=== PATIENT | male | born 1960 | race Caucasian/White ===

== ENCOUNTER → 2024-04-05 | Outpatient (CLI) | payer OTHER ==
--- NOTE | 2024-04-05 09:03 | MR ---
EXAMINATION TYPE: MR Prostate wo/w con DATE OF EXAM: 04/05/2024 8:27 AM COMPARISON: None. CLINICAL INDICATION: Male, 64 years old with history of I70.209, R97.20; Elevated PSA TECHNIQUE: Multi-planar, multi-sequence imaging of the pelvis is performed prior to and following the uncomplicated administration of bolus intravenous gadolinium. IV Contrast: 12 mL Gadobutrol Interpretive Criteria: PI-RADS v2.1 SERUM PSA: 01/2023=5.58, 02/2024=4.82 SURGICAL PATHOLOGY: No data available. FINDINGS: Prostatic dimensions: 5.8 x 3.8 x 5.2 cm cm. Ellipsoid Volume:60.01 (PSA density=0.08 ng/mL/mL) CENTRAL GLAND (Central and Transition Zones/CZ+TZ): Multiple bilateral, heterogenous appearing hypertrophic stromal nodules, without suspicious lesion. M edian lobe hypertrophy with protrusion into the base of the bladder. (PI-RADS 2) PERIPHERAL ZONE (PZ): Bilateral linear, indistinct wedgelike areas of low ADC, and low T2 signal, No evidence of masslike a bnormality, or localized perfusional hypervascularity, to further suggest a focus of clinically signi ficant prostate cancer. (PI-RADS 2) SEMINAL VESICLES (SV): Symmetric and unremarkable. PERIPROSTATIC TISSUES: Unremarkable. LYMPH NODES: No enlarged pelvic lymph node. REMAINING PELVIS: Bladder wall is within normal limits given distention. No abnormal free or organized intrapelvic fluid collection. No pathologic bowel dilation or mural thickening. Bilateral fat containing inguinal hernias. OSSEOUS STRUCTURES: No suspicious osseous abnormality. Hip arthroplasty susceptibility artifact limits evaluation bilater ally. IMPRESSION: 1. No specific features for high-risk prostate cancer. Maximum PI-RADS score: 2. 2. Moderate BPH, estimated gland volume 60.01 mL. 3. No suspicious osseous lesion. No lymphadenopathy. No evidence of prostate adenocarcinoma involving the periprostatic tissues. [facility], , 04/05/2024 9:01 AM
--- NOTE | 2024-04-06 10:24 | CA ---
Transthoracic Echo Report Name: Kar Russell Age: 64 Gender: M : 1960 Exam Date: 04/05/2024 08:28 Exam Location: [place] [facility] Ht (in): 72 Wt (lb): 270 Ordering Physician: Carlos Wilde Attending/Referring Phys: Eyad Contreras [facility] [place] [employer] Lilly Carias RDCS Procedure CPT: Indications: I70.209, R97.20 Cardiac Hx: Technical Quality: Good Contrast 1: Total Dose (mL): Contrast 2: Total Dose (mL): MEASUREMENTS (Male / Female) Normal Values 2D ECHO LV Diastolic Diameter PLAX 4.8 cm 4.2 - 5.9 / 3.9 - 5.3 cm LV Systolic Diameter PLAX 3.1 cm IVS Diastolic Thickness 0.9 cm 0.6 - 1.0 / 0.6 - 0.9 cm LVPW Diastolic Thickness 0.9 cm 0.6 - 1.0 / 0.6 - 0.9 cm LV Relative Wall Thickness 0.4 RV Internal Dim ED PLAX 3.3 cm Aortic Root Diameter 3.1 cm LA Systolic Diameter LX 3.7 cm 3.0 - 4.0 / 2.7 - 3.8 cm LV Diastolic Volume MOD BP 99.6 cm??? 67 - 155 / 56 - 104 cm??? LV Systolic Volume MOD BP 34.9 cm??? 22 - 58 / 19 - 49 cm??? LV Ejection Fraction MOD BP 64.9 % >= 55 % LV Cardiac Index MOD BP 1374.9 cm???/min???m??? LV Diastolic Volume MOD 4C 91.2 cm??? LV Systolic Volume MOD 4C 32.6 cm??? LV Ejection Fraction MOD 4C 64.3 % LV Cardiac Index MOD 4C 1246.6 cm???/min???m??? LV Diastolic Length 4C 8.9 cm LV Systolic Length 4C 7.4 cm LV Diastolic Volume MOD 2C 106.1 cm??? LV Systolic Volume MOD 2C 36.7 cm??? LV Ejection Fraction MOD 2C 65.4 % LV Cardiac Index MOD 2C 1476.6 cm???/min???m??? LV Diastolic Length 2C 8.7 cm LV Systolic Length 2C 7.1 cm DOPPLER Mitral E Point Velocity 52.9 cm/s Mitral A Point Velocity 66.0 cm/s Mitral E to A Ratio 0.8 MV Deceleration Time 326.4 ms MV E' Velocity 6.3 cm/s Mitral E to MV E' Ratio 8.4 TR Peak Velocity 210.4 cm/s TR Peak Gradient 17.7 mmHg FINDINGS Left Ventricle Left ventricular ejection fraction is estimated at 55-60 %. Normal left ventricular systolic function with no obvious regional wall motion abnormalities. Right Ventricle Normal right ventricular size and function. Right ventricular systolic pressure within normal limits. Right Atrium Normal right atrial size. Left Atrium Normal left atrial size. Mitral Valve Structurally normal mitral valve. No mitral stenosis. Trace mitral regurgitation. Aortic Valve Trileaflet aortic valve. No aortic stenosis. Trace aortic regurgitation. Tricuspid Valve Structurally normal tricuspid valve. Trace tricuspid regurgitation. Pulmonic Valve Structurally normal pulmonic valve. No pulmonic stenosis. Moderate pulmonic regurgitation. Pericardium No pericardial effusion. Aorta Normal size aortic root and proximal ascending aorta. CONCLUSIONS Left ventricular ejection fraction is estimated at 55-60 %. No obvious regional wall motion abnormalities. Normal right ventricular size and function. No significant valve pathology Previewed by: Dr Donald Wayne (Electronically Signed) Final Date: 05 April 2024 10:58
== END | disposition home or self-care (01) ==
LOC: RADMRIMAIN 07:21
PROVIDERS: ATTEND Physician Assistant
DX: I70.209 Unspecified atherosclerosis of native arteries of extremities, unspecified extremity (principal); R97.20 Elevated prostate specific antigen [PSA]; N40.0 Benign prostatic hyperplasia without lower urinary tract symptoms
CPT/HCPCS: 93306; 72197; A9585